=== PATIENT | female | born 1950 | race African-American/Black ===

== ENCOUNTER → 2017-03-30 | Outpatient (CLI) | payer OTHER, MEDICARE ==
[~2017-03-30] MED LIST: ACTOS15 MG PO; AMARYL2 MG PO; AMARYL4 MG PO; ARANESP100 MCG/0. SUBQ; ASPIRIN325 PO; ASPIRIN81 M2 PO; ATIVAN1 MG PO; ATIVAN2 MG PO; ATORVASTATIN CA80 MG PO; BYETTA SUBQ; CELEXA40 MG PO; CHLORTHALIDONE25 MG PO; CIPRO250 M1 PO; COREG25 MG PO; FUROSEMIDE 20 M20 M1 PO; GLUCOPHAGE1000 MG PO; LANTUS SOL100 UNIT/1 SUBQ; LISINOPRIL2.5 MG PO; LISINOPRIL20 MG PO; LISINOPRIL40 MG PO; LOPRESSOR100 MG PO; MODAFINIL200 MG PO; MULTIVITAMINS1 EAC7 PO; NEURONTIN 300300 M1 PO; NEURONTIN600 MG PO; NORCO 5-325 TA1 EACH PO; NORVASC 5 MG TAB5 MG PO; NOVOLOG100 UNIT/M SUBQ; OMEPRAZOLE-BIC1 EAC1 PO; PIOGLITAZONE15 MG PO; PROTONIX40 MG PO; SIMVASTATIN20 MG PO; SLOW REL IRON160 M1 PO; SPIRONOLACTONE25 M1 PO; SUPER B COMPLE1 EAC2 PO; TOPROL XL50 MG PO; TRAMADOL 50 MG50 MG PO; VITAMIN B-1100 M1 PO; VITAMIN D31000 UNI2 PO; VITAMIN D400 UNI1 PO; ZOFRAN ODT4 MG PO
--- NOTE | ~2017-03-30 | 2DMMODE ---
[facility] [address] [address] 2 D/M-MODE ECHOCARDIOGRAM Name: ASIM BONDS Room #: REG CL [facility]#: [id number] Admission: 03/30/17 Attend Phys: Gerardo Weiss Discharge: Date of : 48 Date of Service: 03/30/17 1351 Report #: [id number] THIS REPORT FOR: //name// APPROVED REPORT Study performed: 03/30/2017 13:03:44 EXAM: Comprehensive 2D, Doppler, and color-flow Echocardiogram Patient Location: Out-Patient Status: routine BSA: 0.78 HR: 75 bpm Rhythm: NSR Other Information Study Quality: Adequate Indications CAD, HTN, HLP 2D Dimensions RVDd: 35.23 mm LVEF(%): 56.51 (>50%) IVSd: 13.47 (7-11mm) LVOT Diam: 21.57 (18-24mm) LVDd: 43.50 mm PWd: 13.08 (7-11mm) LVDs: 30.74 (25-40mm) Aortic Root: 34.31 mm Starr's LVEF: 56.51 % Volumes Left Atrial Volume (Systole) Single Plane 4CH: 63.21 mL Single Plane 2CH: 62.45 mL Aortic Valve AoV Peak Smith.: 1.50 m/s AO Peak Gr.: 9.05 mmHg LVOT Max P.96 mmHg LVOT Max V: 1.00 m/s LULÚ Vmax: 2.42 cm2 Mitral Valve E/A Ratio: 0.6 MV Decel. Time: 158.11 ms MV E Max Smith.: 0.82 m/s [facility] [address] [address] 2 D/M-MODE ECHOCARDIOGRAM Name: ASIM BONDS Room #: REG [facility]#: [id number] Admission: 03/30/17 Attend Phys: Gerardo Weiss Discharge: Date of : 48 Date of Service: 03/30/17 1351 Report #: [id number] A Smith.: 1.41 m/s MV PHT: 45.85 ms IVRT: 76.12 ms Pulmonary Valve PV Peak Smith.: 0.99 m/s PV Peak Gr.: 3.89 mmHg Tricuspid Valve TR Peak Smith.: 2.68 m/s RAP Estimate: 5.00 mmHg TR Peak Gr.: 28.76 mmHg PA Pressure: 34.00 mmHg Left Ventricle The left ventricle is normal size. There is normal LV segmental wall motion. Mild concentric left ventricular hypertrophy. Left ventricular systolic function is normal. LVEF is 55-60%. Mild diastolic dysfunction is present (impaired relaxation pattern). Right Ventricle The right ventricle is normal size. The right ventricular systolic function is normal. Atria Left atrium is at the upper limits of normal. The right atrium size is normal. Aortic Valve The aortic valve is normal in structure. No aortic regurgitation is present. There is no aortic valvular stenosis. Mitral Valve The mitral valve is normal in structure. Trace to mild mitral regurgitation. No evidence of mitral valve stenosis. Tricuspid Valve The tricuspid valve is normal in structure. Trace tricuspid regurgitation. Estimted PAP is 30-35mmHg. Pulmonic Valve Pulmonic valve is not well visualized. Great Vessels The aortic root is normal in size. Ascending aorta is not well visualized. IVC is normal in size and collapses >50% with inspiration. [facility] [address] [place] [address] 2 D/M-MODE ECHOCARDIOGRAM Name: ASIM BONDS Room #: REG [facility]#: [id number] Admission: 03/30/17 Attend Phys: Gerardo Weiss Discharge: Date of : 48 Date of Service: 03/30/17 1351 Report #: [id number] Pericardium There is no pericardial effusion. <Conclusion> The left ventricle is normal size. LVEF is 55-60%. Left atrium is at the upper limits of normal. The aortic valve is normal in structure. The mitral valve is normal in structure. Trace to mild mitral regurgitation. The tricuspid valve is normal in structure. Trace tricuspid regurgitation. Estimted PAP is 30-35mmHg. <ELECTRONICALLY SIGNED> By: Gerardo Jordan MD 03/30/17 1351 1351 1351 Gerardo Jordan MD /INF
== END ==
LOC: CV 10:43
DX: I10 Essential (primary) hypertension (principal); I25.10 Atherosclerotic heart disease of native coronary artery without angina pectoris; E78.5 Hyperlipidemia, unspecified; M79.604 Pain in right leg; M79.89 Other specified soft tissue disorders

== ENCOUNTER 2017-08-01 15:20 | Inpatient (IN) | payer OTHER, MEDICARE ==
[~2017-08-01] VITALS: Ht 167.6 cm; Wt 105.4 kg
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
--- NOTE | ~2017-08-01 | EKG ---
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: Jozef FARAH : 1950 Requested By: Ailyn Michaels Order Number: [id number] MD: Harjeet Cheney Measurements Intervals [place] Rate: 90 P: 73 ME: 147 QRS: -18 QRSD: 146 T: 44 QT: 413 QTc: 506 Interpretive Statements Sinus rhythm Right bundle branch block Compared to ECG 06/15/2017 08:35:23 No significant changes Electronically Signed On 08-02-2017 8:45:40 DECOMMISSIONING WELL SITE MANAGER by Harjeet Cheney [email or web address] <ELECTRONICALLY SIGNED> By: Harjeet Cheney MD, [facility] 08/02/17 0845 1606 05 Harjeet Cheney MD, FACC /EPI
--- NOTE | ~2017-08-01 | HC ---
[facility] [place] [address] CONSULTATION Name: ASIM BONDS Room #: 417-I ADM IN M.R.#: [id number] Admission: 08/01/17 Attend Phys: Eduardo Gibsno MD Discharge: Date of : 48 Report #: [id number] THIS REPORT FOR: //name// CC: Eduardo Addison REASON FOR CONSULTATION: Acute kidney injury on top of chronic kidney disease. REASON FOR PRESENTATION: Weakness. HISTORY OF PRESENT ILLNESS: This is a 66-year-old with past medical history of end-stage renal disease who was in the process of being evaluated for kidney transplantation. She recently had a cardiac catheterization to clear her for the procedure. She is known to have chronic end-stage renal disease with a baseline creatinine of around 5.0. She fell about 2 weeks ago and ever since had been experiencing nausea, vomiting, mild abdominal pain. Because of the worsening of her symptoms, she decided to come to the Emergency Room for further evaluation and management. No reported urinary symptoms in the form of frequency, urgency, hesitancy. No change in the medications, no nonsteroidal anti-inflammatory medications intake. On presentation, she was found to have significantly worsening renal function with a creatinine up to 8.1. I am being consulted to manage her chronic kidney disease. MEDICATIONS: 1. Omeprazole. 2. Darbepoetin. 3. Aspirin. 4. Lisinopril. 5. Clonidine. 6. Carvedilol. 7. Chlorthalidone. PAST MEDICAL HISTORY: 1. End-stage renal disease. 2. Hypertension. 3. Diabetes mellitus. 4. Sleep apnea. 5. Status post cardiac catheterization. 6. Left knee arthroscopy. 7. Hysterectomy. 8. Cholecystectomy. 9. Bone marrow biopsy. SOCIAL HISTORY: No drug or alcohol abuse. She lives with her . ALLERGIES: SULFA. [facility] [address] [place] [address] CONSULTATION Name: ASIM BONDS Room #: 417-I [facility] IN [facility].#: [id number] Admission: 08/01/17 Attend Phys: Eduardo Gibson MD Discharge: Date of : 48 Report #: [id number] REVIEW OF SYSTEMS: GENERAL: Significant for weakness. CARDIOVASCULAR: No chest pain or palpitation. PULMONARY: No cough or hemoptysis. GASTROINTESTINAL: Significant for nausea and vomiting. GENITOURINARY: No frequency, no urgency. NEUROLOGIC: As per the history of present illness. PHYSICAL EXAMINATION: GENERAL: She is alert, oriented, in no apparent distress. VITAL SIGNS: Blood pressure is marginal at 100/44, temperature 36.6, pulse rate 82, respiratory rate 16. HEAD AND NECK: No jugular venous distention, no bruit, no thyromegaly. HEENT: Dry mucous membrane. CHEST: Clear to auscultation. CARDIOVASCULAR: Regular, with no rub. ABDOMEN: Soft, nontender with no hepatosplenomegaly. LOWER EXTREMITIES: No edema. LABORATORY DATA: Reviewed. Potassium is up to 5.6. Creatinine is 7.7, down from 8.1, however, way above her baseline. Chest x-ray with no pulmonary edema. ASSESSMENT, IMPRESSION AND PLAN: 1. Acute kidney injury due to ____. 2. End-stage renal disease, in process of being evaluated for kidney transplantation. 3. Diabetes mellitus. 4. The patient has a significantly decreased p.o. intake contributing to her acute kidney injury. 5. We will back off all the blood pressure medications. 6. Discontinue glimepiride given her blood sugar reading. 7. Continue with hydration. 8. Repeat labs in the morning and hopefully she will continue to improve back to her baseline. <ELECTRONICALLY SIGNED> By: Oanh Gresham MD 08/03/17 0939 1 1927 Oanh Gresham MD /nt
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
[~2017-08-01 15:20] MED LIST changes: +BUPROPION XL150 MG PO; +CATAPRES0.2 MG PO; +GLUCOPHAGE XR500 MG PO
[2017-08-01 15:31] VITALS: BP 121/77
[2017-08-01 16:40] LABS: ABSOLUTE NEUTROPHILS 4.5 thou/uL (1.4-8.2); EOSINOPHILS 0.5 % (0.0-3.0); HEMOGLOBIN 9.9 gm/dL (12.0-15.0); MCH 32.1 pg (26.0-34.0); MCHC 32.9 g/dL (28.0-37.0); MCV 97.7 fL (80.0-100.0); MONOCYTES 6.5 % (1.0-8.0); PLATELET COUNT 212 thou/uL (150-400); RBC 3.07 mil/uL (4.20-5.00); RDW 17.4 % (10.5-14.5)
[2017-08-01 17:03] LABS: ANION GAP 16 mmol/L (7-16); BUN 177 mg/dL (7-18); CALCIUM 10.1 mg/dL (8.5-10.1); CHLORIDE 102 mmol/L (98-107); CO2 20 mmol/L (21-32); CREATININE 8.1 mg/dL (0.6-1.0); GLUCOSE 155 mg/dL (74-106); POTASSIUM 4.7 mmol/L (3.5-5.1); SODIUM 138 mmol/L (136-145)
[2017-08-01 17:05] LABS: SGOT 14 U/L (15-37); SGPT 13 U/L (30-65); TOTAL BILIRUBIN 0.9 mg/dL (<0.1-1.0); TOTAL PROTEIN 7.7 g/dL (6.4-8.2); TROPONIN-I < 0.04 ng/mL (<0.06)
[2017-08-01 17:51] LABS: URINE BILIRUBIN NEGATIVE (Negative); URINE BLOOD NEGATIVE (Negative); URINE CLARITY CLEAR; URINE COLOR YELLOW; URINE GLUCOSE-RANDOM* NEGATIVE (Negative); URINE KETONES NEGATIVE (Negative); URINE LEUKOCYTES NEGATIVE (Negative); URINE NITRITE NEGATIVE (Negative); URINE PROTEIN (DIPSTICK) 1+ (Negative); URINE UROBILINOGEN 0.2 E.U./dl (0.2-1.0)
[2017-08-01 18:11] LABS: CASTS None Seen /LPF (None Seen); CRYSTALS None Seen /LPF (None Seen); SQUAMOUS 0-3 Few /LPF (0-3); URINE RBC None Seen /HPF (0-2); URINE WBC None Seen /HPF (0-5)
[2017-08-01 18:12] LABS: BACTERIA 1-9 Few /HPF (None Seen)
[2017-08-01 19:33] VITALS: BP 145/67
[2017-08-01 20:31] VITALS: BP 147/62
[2017-08-01 20:55] VITALS: BP 145/65
[2017-08-01 23:12] VITALS: BP 132/70
[2017-08-02 04:00] VITALS: BP 93/44
[2017-08-02 04:50] LABS: CALCIUM 8.7 mg/dL (8.5-10.1); CREATININE 7.7 mg/dL (0.6-1.0); POTASSIUM 5.6 mmol/L (3.5-5.1)
[2017-08-02 07:45] VITALS: BP 100/44
[2017-08-02 10:45] VITALS: BP 123/55
[2017-08-02 15:30] VITALS: BP 109/57
[2017-08-02 19:05] VITALS: BP 147/67
[2017-08-03 03:56] VITALS: BP 99/44
[2017-08-03 07:10] VITALS: BP 107/54
[2017-08-03 07:12] LABS: ALBUMIN 3.1 g/dL (3.4-5.0); CALCIUM 8.7 mg/dL (8.5-10.1); CREATININE 8.2 mg/dL (0.6-1.0); PHOSPHORUS 5.3 mg/dL (2.5-4.9); POTASSIUM 4.3 mmol/L (3.5-5.1)
[2017-08-03 07:20] VITALS: BP 107/54
[2017-08-03 20:00] VITALS: BP 139/60
[2017-08-04 04:30] VITALS: BP 141/65
[2017-08-04 05:12] LABS: CALCIUM 8.5 mg/dL (8.5-10.1); POTASSIUM 4.5 mmol/L (3.5-5.1)
[2017-08-04 05:14] LABS: CREATININE 7.2 mg/dL (0.6-1.0)
[2017-08-04 08:48] VITALS: BP 127/66
[2017-08-04 09:12] LABS: URINE BILIRUBIN NEGATIVE (Negative); URINE BLOOD NEGATIVE (Negative); URINE CLARITY CLEAR; URINE COLOR YELLOW; URINE GLUCOSE-RANDOM* NEGATIVE (Negative); URINE KETONES NEGATIVE (Negative); URINE LEUKOCYTES 1+ (Negative); URINE NITRITE NEGATIVE (Negative); URINE PROTEIN (DIPSTICK) NEGATIVE (Negative); URINE SPECIFIC GRAVITY 1.015 (1.005-1.035); URINE UROBILINOGEN 0.2 E.U./dl (0.2-1.0)
[2017-08-04 09:16] LABS: URINE CREATININE-RANDOM* 56.5 mg/dL; URINE PROTEIN-RANDOM* 20.8 mg/dL (<11.9)
[2017-08-04 09:27] LABS: SQUAMOUS 4-10 Moderate /LPF (0-3)
[2017-08-04 09:28] LABS: BACTERIA 1-9 Few /HPF (None Seen); CASTS None Seen /LPF (None Seen); CRYSTALS None Seen /LPF (None Seen); URINE RBC 0-2 Rare /HPF (0-2); URINE WBC 6-15 Few /HPF (0-5)
[2017-08-04 16:00] VITALS: BP 141/64
[2017-08-04 19:30] VITALS: BP 130/74
[2017-08-05 03:45] VITALS: BP 118/50
[2017-08-05 07:20] VITALS: BP 141/70
[2017-08-05 07:24] LABS: ALBUMIN 2.6 g/dL (3.4-5.0); CALCIUM 8.5 mg/dL (8.5-10.1); CREATININE 6.5 mg/dL (0.6-1.0); PHOSPHORUS 4.2 mg/dL (2.5-4.9); POTASSIUM 4.5 mmol/L (3.5-5.1)
[2017-08-05 15:15] VITALS: BP 194/96
[2017-12-03] MEDS ORDERED: WELLBUTRIN SR150 MG PO (14:05)
[2017-12-03] MEDS ORDERED: LISINOPRIL40 MG PO (14:05)
[2017-12-03] MEDS ORDERED: LIPITOR80 MG PO (14:06)
[2017-12-03] MEDS ORDERED: SENNA-DOCUSATE1 EACH PO (15:34)
[2017-12-03] MEDS ORDERED: NORCO 5-325 TA1 EACH PO (15:34)
== END 2017-08-05 20:00 | DRG 682 ==
LOC: ER 15:20 → 3W 19:07 → EROBS 19:07 → 4E 19:07 → 3W 20:28 → 4E 08-02 10:24
PROVIDERS: Hospitalist; Nurse Practitioner Acute Care; Physician Assistant
DX: N17.9 Acute kidney failure, unspecified (principal); E43 Unspecified severe protein-calorie malnutrition; I12.0 Hypertensive chronic kidney disease with stage 5 chronic kidney disease or end stage renal disease; N18.9 Chronic kidney disease, unspecified; E11.22 Type 2 diabetes mellitus with diabetic chronic kidney disease; K21.9 Gastro-esophageal reflux disease without esophagitis; M54.30 Sciatica, unspecified side; N18.6 End stage renal disease; E11.42 Type 2 diabetes mellitus with diabetic polyneuropathy; G47.33 Obstructive sleep apnea (adult) (pediatric); Z87.891 Personal history of nicotine dependence; E87.5 Hyperkalemia; D64.9 Anemia, unspecified; Z88.2 Allergy status to sulfonamides; Z90.49 Acquired absence of other specified parts of digestive tract; Z90.710 Acquired absence of both cervix and uterus; Z83.3 Family history of diabetes mellitus; Z82.49 Family history of ischemic heart disease and other diseases of the circulatory system; Z82.5 Family history of asthma and other chronic lower respiratory diseases
CPT/HCPCS: 10080; 10084

== ENCOUNTER 2017-08-05 12:13 | Inpatient (IN) | payer OTHER, MEDICARE ==
[~2017-08-05] VITALS: Ht 167.6 cm; Wt 102.5 kg
--- NOTE | ~2017-08-05 | D ---
[facility] [address] [place] [address] DISCHARGE SUMMARY Name: ASIM BONDS Room #: 503-P [facility] IN M.R.#: [id number] Admission: 08/05/17 Attend Phys: Gurpreet Crooks MD Discharge: 08/16/17 Date of : 48 Report #: [id number] THIS REPORT FOR: //name// CC: Gurpreet Addison DATE OF SERVICE: 08/16/2017 ADDENDUM The patient missed some therapy on 08/15/2017 secondary to fatigue with refusal. <ELECTRONICALLY SIGNED> By: Gurpreet Crooks MD 08/22/17 1226 1348 1404 Gurpreet Crooks MD /PMT
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
--- NOTE | ~2017-08-05 | HC ---
[facility] [place] [address] CONSULTATION Name: ASIM BONDS Room #: 503-P ADM IN M.R.#: [id number] Admission: 08/05/17 Attend Phys: Gurpreet Crooks MD Discharge: Date of : 48 Report #: [id number] THIS REPORT FOR: //name// CC: Guprreet Addison DATE OF SERVICE: 08/07/2017 ATTENDING PHYSICIAN: Gurpreet Crooks MD. LEGGER PRESS OPERATOR: Melecio Ponce, PhD. CLINICAL PRESENTATION: The patient is a 66-year-old female admitted to the rehabilitation unit at [facility] for comprehensive inpatient rehabilitation program to improve functional mobility, activities of daily living and self-care and mental status secondary to deficits from medical complexity and generalized debility. She initially was admitted to the hospital with acute renal insufficiency superimposed on chronic kidney disease. Additional problems included hyperkalemia, sciatica, diabetes mellitus, hypertension, chronic anemia and peripheral neuropathy. A complete description of her medical condition and history can be found in her medical records. Neuropsychological consultation was requested to provide assistance in the assessment of cognitive and emotional status and to provide recommendations and services. Prior to this most recent hospitalization, she was living independently in her own home with her . The patient describes herself as independent with instrumental activities of daily living. She does not have children. 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 Patient reported having obtained a master's degree. She has a history of treatment for depression and anxiety. TECHNIQUES UTILIZED: Clinical interview, review of medical records, staff consultation and behavioral observation, mini mental status exam 2 standard version, clock drawing and calibrated ideational fluency assessment (letter and category). EXAMINATION FINDINGS: The patient was alert and cooperative with the assessment. She accurately described the reasons for her hospitalization. There is no report of auditory or visual hallucinations. She does not present with aphasia. Thoughts are logical and goal oriented. There is no evidence of thought disorder. She reports her symptoms to include anxiety, depression, tiredness and fatigue, poor appetite, difficulty with memory, word finding, tiredness and fatigued. Dysarthric speech secondary to fatigue is described. to the extent of dysarthria. [facility] [address] [place] [address] CONSULTATION Name: ASIM BONDS Room #: 503-P [facility] IN M.R.#: [id number] Admission: 08/05/17 Attend Phys: Gurpreet Crooks MD Discharge: Date of : 48 Report #: [id number] Her performance on the MMSE 2 brief version is in the mild range of impairment with a raw score of 13 of 16, which is a T score 32 and percentile rank of 4. She was 3 of 3 for initial registration, 4 of 5 for orientation to time and 5 of [address] She was 1 of 3 correct for immediate recall of 3 items after a brief time delay and distraction. Performance on the MMSE 2 standard version is in the borderline range with a raw score of 23 of 30, T score of 29 and percentile rank of 2. The patient was 1 of 5 for serial sevens, 2 of 2 for naming, 1 of 1 for repetition, 3 of 3 for auditory comprehension. She could read and follow a single command, write a sentence and copy a simple geometric design. Clock drawing is within normal limits. Letter fluency was in the average range with a raw score of 27, T score of 15 and percentile rank of 50. Category fluency was in the average range with a raw score of 39, T score of 44, percentile rank of 27. Overall, verbal fluency is in the low average range with a raw score of 66, T score of 43 and percentile rank of 24. The patient is presenting with mild deficits in immediate recall, sustained concentration and attention. Subtle deficits in verbal fluency indicates variability in thought organization and general aspects of executive functioning. Her greatest impairment though is within sustained concentration. DIAGNOSTIC IMPRESSION: Mild neurocognitive disorder, unspecified, without behavior disorder. Unspecified anxiety disorder with depression. RECOMMENDATIONS: Assistance with the development of compensatory strategies to assist with immediate recall and concentration. Relaxation techniques and verbal praise and complements about her participation in therapies will help assist in management of anxiety and depression. Helping the patient identify strengths and resources that can be used to compensate for deficits will also be helpful. A neuropsychological assessment upon discharge to clarify the severity of cognitive disorder. Contributing to cognitive disorder is very likely chronic renal failure. Thank you very much for allowing me to provide the consultation on this patient. <ELECTRONICALLY SIGNED> By: Melecio Ponce, PhD 08/08/17 1841 1559 2141 Melecio Ponce, PhD /nt
--- NOTE | ~2017-08-05 | PLAN ---
[facility] [place] [address] REHAB UNIT PLAN OF CARE Name: ASIM BONDS Room #: 503-P [facility] IN M.R.#: [id number] Admission: 08/05/17 Attend Phys: Gurpreet Crooks MD Discharge: 08/16/17 Date of : 48 Report #: [id number] THIS REPORT FOR: //name// CC: Gurpreet Viveros [facility] DATE OF SERVICE: 08/08/2017 The patient is seen back today in followup. She is in no distress. Last recorded temperature 98.3, pulse 89, respirations 18, blood pressure 163/76. No focal calf swelling. She has been working in therapies with transfer standby assistance. She ambulated 5 feet standby assist with a front-wheeled walker. She has ambulated up to 150 feet handheld mod assist. In occupational therapy, lower body dressing is min assist. Her creatinine today is slowly decreased down to 5.9. ASSESSMENT: 1. Medical complexity with generalized debilitation. 2. Acute renal insufficiency superimposed on chronic kidney disease. Creatinine is down to 5.9. 3. Hyperkalemia, resolved. 4. Sciatica. 5. Diabetes mellitus with Endocrinology closely involved. 6. Hypertension. 7. Chronic anemia. 8. Peripheral neuropathy. PLAN: The overall plan of care is based on the preadmission screen, post-admission physician evaluation and information garnered from therapy assessments. 1. Estimated length of stay is probably at least 7-10 days and potentially longer. 2. Medical prognosis is reasonably good. 3. Anticipated interventions includes the interdisciplinary acute inpatient rehabilitation program with the goal of maximizing the patient's functional independence, so that she can hopefully return back to her prior living situation. We will have PT and OT involved rehab nursing assisting regarding medication management, skin care prophylaxis, bowel and bladder issues and nursing education. Case management is involved along with the car sales consultant physicians. 4. Anticipated functional outcomes would be for the patient to become modified independent with transfers, mobility and ADLs, so she can hopefully return back to her prior living situation. 5. Discharge destination is back to the home setting where she lives in a house with her . 6. Expected therapy by discipline includes PT and OT 1 and 1-1/2 hours per day [address] [address] REHAB UNIT PLAN OF CARE Name: ASIM BONDS Room #: 503-P DIS IN ..#: [id number] Admission: 08/05/17 Attend Phys: Gurpreet Crooks MD Discharge: 08/16/17 Date of : 48 Report #: [id number] each five days a week throughout the duration of the acute inpatient rehabilitation stay. The patient missed some therapy on 08/15/2017 secondary to fatigue with refusal. <ELECTRONICALLY SIGNED> By: Gurpreet Crooks MD 08/22/17 1226 0802 0827 Gurpreet Crooks MD /CESAR
[2017-08-05 20:15] VITALS: BP 171/70
[2017-08-06 03:31] LABS: ALBUMIN 2.8 g/dL (3.4-5.0); CALCIUM 8.4 mg/dL (8.5-10.1); CREATININE 6.1 mg/dL (0.6-1.0); PHOSPHORUS 3.7 mg/dL (2.5-4.9); POTASSIUM 4.8 mmol/L (3.5-5.1)
[2017-08-06 05:50] VITALS: BP 147/75
[2017-08-06 06:54] VITALS: BP 153/75
[2017-08-06 20:57] VITALS: BP 160/79
[2017-08-07 05:34] LABS: ALBUMIN 2.9 g/dL (3.4-5.0); CALCIUM 8.8 mg/dL (8.5-10.1); CREATININE 6.1 mg/dL (0.6-1.0); PHOSPHORUS 4.1 mg/dL (2.5-4.9)
[2017-08-07 08:00] VITALS: BP 163/75
[2017-08-07 19:18] VITALS: BP 163/76
[2017-08-08 06:49] LABS: ALBUMIN 2.9 g/dL (3.4-5.0); CALCIUM 8.6 mg/dL (8.5-10.1); CREATININE 5.9 mg/dL (0.6-1.0); PHOSPHORUS 3.9 mg/dL (2.5-4.9); POTASSIUM 4.6 mmol/L (3.5-5.1)
[2017-08-08 08:25] VITALS: BP 111/60
[2017-08-08 20:18] VITALS: BP 154/74
[2017-08-09 06:48] VITALS: BP 118/47
[2017-08-09 19:54] VITALS: BP 167/82
[2017-08-10 04:18] LABS: HEMOGLOBIN 6.5 gm/dL (12.0-15.0); MCH 32.2 pg (26.0-34.0)
[2017-08-10 04:20] LABS: MCHC 33.1 g/dL (28.0-37.0); MCV 97.1 fL (80.0-100.0); RBC 2.02 mil/uL (4.20-5.00); WBC 4.8 thou/uL (4.0-11.0)
[2017-08-10 04:28] LABS: HEMATOCRIT 19.6 % (37.0-47.0)
[2017-08-10 04:39] LABS: ALBUMIN 3.1 g/dL (3.4-5.0); CALCIUM 8.9 mg/dL (8.5-10.1); CREATININE 6.1 mg/dL (0.6-1.0); PHOSPHORUS 3.8 mg/dL (2.5-4.9); POTASSIUM 4.8 mmol/L (3.5-5.1)
[2017-08-10 05:04] LABS: HEMOGLOBIN 6.6 gm/dL (12.0-15.0)
[2017-08-10 05:52] LABS: % SATURATION 18 % (20-39); IRON 43 ug/dL (50-170); TIBC 241 ug/dL (250-450)
[2017-08-10 07:06] VITALS: BP 140/74
[2017-08-10 20:07] VITALS: BP 160/86
[2017-08-11 08:00] VITALS: BP 138/69
[2017-08-11 20:07] VITALS: BP 158/83
[2017-08-12 06:01] LABS: MCH 32.1 pg (26.0-34.0); MCHC 32.7 g/dL (28.0-37.0); MCV 98.2 fL (80.0-100.0); RBC 2.02 mil/uL (4.20-5.00); WBC 6.3 thou/uL (4.0-11.0)
[2017-08-12 06:10] LABS: HEMATOCRIT 19.8 % (37.0-47.0); HEMOGLOBIN 6.5 gm/dL (12.0-15.0)
[2017-08-12 06:14] LABS: ALBUMIN 3.1 g/dL (3.4-5.0); CALCIUM 9.1 mg/dL (8.5-10.1); CREATININE 6.3 mg/dL (0.6-1.0); PHOSPHORUS 4.4 mg/dL (2.5-4.9); POTASSIUM 4.3 mmol/L (3.5-5.1)
[2017-08-12 07:30] VITALS: BP 143/56
[2017-08-12 20:13] VITALS: BP 174/83
[2017-08-13 08:00] VITALS: BP 149/48
[2017-08-13 15:52] LABS: HEMATOCRIT 22.3 % (37.0-47.0); HEMOGLOBIN 7.3 gm/dL (12.0-15.0)
[2017-08-13 20:00] VITALS: BP 170/72
[2017-08-14 05:04] LABS: HEMATOCRIT 20.1 % (37.0-47.0); HEMOGLOBIN 6.6 gm/dL (12.0-15.0); MCH 32.5 pg (26.0-34.0); MCHC 32.9 g/dL (28.0-37.0); MCV 98.7 fL (80.0-100.0); RBC 2.03 mil/uL (4.20-5.00); RDW 17.1 % (10.5-14.5); WBC 7.1 thou/uL (4.0-11.0)
[2017-08-14 05:22] LABS: CREATININE 6.1 mg/dL (0.6-1.0); PHOSPHORUS 3.5 mg/dL (2.5-4.9); POTASSIUM 4.1 mmol/L (3.5-5.1)
[2017-08-14 09:46] VITALS: BP 130/76
[2017-08-14 20:10] VITALS: BP 174/82
[2017-08-15 08:00] VITALS: BP 142/63
[2017-08-15 14:41] LABS: HEMATOCRIT 23.5 % (37.0-47.0); HEMOGLOBIN 7.7 gm/dL (12.0-15.0); MCH 32.7 pg (26.0-34.0); MCHC 32.8 g/dL (28.0-37.0); MCV 99.8 fL (80.0-100.0); RBC 2.36 mil/uL (4.20-5.00); RDW 17.5 % (10.5-14.5); WBC 5.2 thou/uL (4.0-11.0)
[2017-08-15 15:04] VITALS: BP 142/63
[2017-08-15] MEDS ORDERED: TRADJENTA5 MG PO (16:06)
[2017-08-15 17:29] VITALS: BP 142/63
[2017-08-15 19:30] VITALS: BP 144/70
[2017-08-16 04:50] LABS: HEMOGLOBIN 6.8 gm/dL (12.0-15.0)
[2017-08-16 04:54] LABS: ABSOLUTE NEUTROPHILS 3.9 thou/uL (1.4-8.2); BASOPHILS 0.4 % (0.0-2.0); HEMATOCRIT 20.8 % (37.0-47.0); LYMPHOCYTES 26.1 % (24.0-44.0); MCH 32.7 pg (26.0-34.0); MCHC 32.9 g/dL (28.0-37.0); MCV 99.6 fL (80.0-100.0); MONOCYTES 9.6 % (1.0-8.0); PLATELET COUNT 215 thou/uL (150-400); POLYS 61.9 % (36.0-66.0); RBC 2.08 mil/uL (4.20-5.00); RDW 17.8 % (10.5-14.5); WBC 6.3 thou/uL (4.0-11.0)
[2017-08-16 05:08] LABS: ALBUMIN 2.9 g/dL (3.4-5.0); CALCIUM 8.4 mg/dL (8.5-10.1); CREATININE 6.3 mg/dL (0.6-1.0); PHOSPHORUS 2.7 mg/dL (2.5-4.9); POTASSIUM 4.1 mmol/L (3.5-5.1)
[2017-08-16 08:00] VITALS: BP 140/56
[2017-08-16 10:48] VITALS: BP 142/63
[2017-08-16] MEDS ORDERED: TRADJENTA5 MG PO (11:22)
[2017-12-03] MEDS ORDERED: LISINOPRIL40 MG PO (14:05)
[2017-12-03] MEDS ORDERED: WELLBUTRIN SR150 MG PO (14:05)
[2017-12-03] MEDS ORDERED: LIPITOR80 MG PO (14:06)
[2017-12-03] MEDS ORDERED: NORCO 5-325 TA1 EACH PO (15:34)
[2017-12-03] MEDS ORDERED: SENNA-DOCUSATE1 EACH PO (15:34)
== END 2017-08-16 13:00 | disposition home health service (06) | DRG 948 ==
LOC: ENTRNSPT 08-16 12:19 → EDTRNSPTSTS 08-16 12:21
PROVIDERS: Hospitalist; Internal Medicine; Internal Medicine Nephrology; Nurse Practitioner Acute Care; Physical Medicine & Rehabilitation
DX: R53.81 Other malaise (principal); N18.5 Chronic kidney disease, stage 5; I12.0 Hypertensive chronic kidney disease with stage 5 chronic kidney disease or end stage renal disease; N17.9 Acute kidney failure, unspecified; D64.9 Anemia, unspecified; E87.5 Hyperkalemia; E11.22 Type 2 diabetes mellitus with diabetic chronic kidney disease; E11.42 Type 2 diabetes mellitus with diabetic polyneuropathy; M54.30 Sciatica, unspecified side; F41.8 Other specified anxiety disorders; G31.84 Mild cognitive impairment of uncertain or unknown etiology; K21.9 Gastro-esophageal reflux disease without esophagitis; G47.33 Obstructive sleep apnea (adult) (pediatric); E78.5 Hyperlipidemia, unspecified; I25.10 Atherosclerotic heart disease of native coronary artery without angina pectoris; Z90.49 Acquired absence of other specified parts of digestive tract; Z88.2 Allergy status to sulfonamides; Z87.891 Personal history of nicotine dependence; Z83.3 Family history of diabetes mellitus; Z82.49 Family history of ischemic heart disease and other diseases of the circulatory system
CPT/HCPCS: 10112

== ENCOUNTER 2017-12-12 15:20 | Inpatient (IN) | payer OTHER, MEDICARE ==
[~2017-12-12] VITALS: Ht 172.7 cm; Wt 91.7 kg
--- NOTE | ~2017-12-12 | HC ---
[facility] [place] [address] CONSULTATION Name: VAMSHIASIM EDMOND Room #: 453-P ADM IN M.R.#: [id number] Admission: 12/12/17 Attend Phys: Momo Mcdonald MD Discharge: Date of : 48 Report #: [id number] THIS REPORT FOR: //name// CC: Felice Mcdonald REASON FOR CONSULTATION: End-stage renal disease. REASON FOR PRESENTATION: Weakness with anemia. HISTORY OF PRESENT ILLNESS: The patient is well known to me. She is known to have long-standing end-stage renal disease and had initially been started on dialysis every Tuesday, Tuesday and Tuesday. Her end-stage renal disease is attributed to diabetes mellitus and hypertension. She was recently running through major social issues. She is being evaluated for kidney transplantation. She presented, complaining of dizziness and lightheadedness. No reported fever or chills. She is known to have numerous AV malformations in the past with history of GI bleeding. She presented after she is being found to have hemoglobin of 5 in her outpatient dialysis unit and was admitted for further evaluation and management. PAST MEDICAL HISTORY: 1. End-stage renal disease. 2. Diabetes mellitus. 3. Hypertension. 4. Obstructive sleep apnea. 5. AV malformations. 6. Left knee arthroscopy. 7. Hysterectomy. 8. Benign lump removal from the left breast. 9. Cholecystectomy. 10. Bone marrow biopsy for cytopenias. PAST SURGICAL HISTORY: AV fistula. Dialysis catheter. FAMILY HISTORY: Mother was diabetic, dad was hypertensive. SOCIAL HISTORY: She is a former smoker. No drug or alcohol abuse. REVIEW OF SYSTEMS: GENERAL: No fever or chills, but significant for weakness. CARDIOVASCULAR: No chest pain, but significant for lightheadedness. PULMONARY: No cough or hemoptysis. GASTROINTESTINAL: No nausea or vomiting. GENITOURINARY: She is still making urine. No frequency, no urgency. MUSCULOSKELETAL: Occasional weakness and back pain. NEUROLOGICAL: Significant for dizziness. [facility] [address] [place] [address] CONSULTATION Name: ASIM BONDS EDMOND Room #: 453-[facility] IN ..#: [id number] Admission: 12/12/17 Attend Phys: Momo Mcdonald MD Discharge: Date of : 48 Report #: [id number] HOME MEDICATIONS: 1. Atorvastatin. 2. Carvedilol. 3. Gabapentin. 4. Citalopram. 5. Omeprazole. PHYSICAL EXAMINATION: GENERAL: Alert, oriented, no apparent distress. VITAL SIGNS: Temperature 36.8, pulse rate 77, blood pressure 128/54. HEAD AND NECK: No jugular venous distention, no bruit, no thyromegaly. CHEST: Clear to auscultation bilaterally. CARDIOVASCULAR: Regular with no rub. ABDOMEN: Soft, nontender. LOWER EXTREMITIES: No edema. LABORATORY DATA: Laboratory values reviewed. Her hemoglobin is up to 7.2. ASSESSMENT, IMPRESSION, PLAN: 1. Symptomatic anemia. 2. End-stage renal disease. 3. History of gastrointestinal bleeding. 4. Hypertension. 5. Diabetes mellitus. 6. Status post transfusion with the hemoglobin picking up appropriately. 7. Dialysis every Tuesday, Tuesday and Tuesday. 8. Replace potassium today. 9. Gastroenterology had been consulted as she is known to have numerous arteriovenous malformations in the past with repeated episodes of gastrointestinal bleeding. I will defer further plans regarding her anemia to the GI team. <ELECTRONICALLY SIGNED> By: Oanh Gresham MD 12/15/17 1027 0826 1155 Oanh Gresham MD /nt
--- NOTE | ~2017-12-12 | PATH ---
[facility] [address] [place] [address] PATHOLOGY RPT PROCEDURE Name: ASIM GALVEZ Room #: 453-P DIS IN M.R.#: [id number] Admission: 12/12/17 Date of : 48 Discharge: 12/15/17 Report #: [id number] Path Case #: [id number] [facility] Accession Number: [id number] . 01 Material submitted: . BX OF RECTAL POLYP . 01 Clinical history: . Pre-OP DX: GI bleed Post-OP DX: Rectal polyp . 02 Diagnosis: Polyp, rectal polyp, endoscopic biopsy: - Hyperplastic polyp. - Negative for dysplasia. (IUV:pit; 12/15/2017) QTP/12/15/2017 . 02 Electronically signed: . Lynn Atwood MD, Pathologist NPI- [id number] . 01 Gross description: . Received in formalin labeled "Asim Galvez, BX of rectal polyp," is a single segment of loredo soft tissue measuring 0.4 cm in maximum dimension. The specimen is submitted entirely in cassette A1. (TSD; 12/14/2017) TOB/TOB . 02 Pathologist provided ICD-10: K62.1 . 02 CPT . 284783 Performed at: [address], [place], [place] [id number] MD Olivier Lau MD Phone: [phone] Performed at: [address] [id number] MD Lynn Atwood MD Phone: [phone]
[~2017-12-12 15:20] MED LIST changes: +LIPITOR80 MG PO; +SENNA-DOCUSATE1 EACH PO; +TRADJENTA5 MG PO; +WELLBUTRIN SR150 MG PO
[2017-12-12 15:28] VITALS: BP 112/55
[2017-12-12 17:31] LABS: ABSOLUTE NEUTROPHILS 7.2 thou/uL (1.4-8.2); EOSINOPHILS 0.4 % (0.0-3.0); RBC 1.66 mil/uL (4.20-5.00); WBC 8.8 thou/uL (4.0-11.0)
[2017-12-12 17:33] LABS: BASOPHILS 0.6 % (0.0-2.0); LYMPHOCYTES 10.7 % (24.0-44.0); MCH 31.2 pg (26.0-34.0); MCHC 33.2 g/dL (28.0-37.0); MCV 94.1 fL (80.0-100.0); MONOCYTES 6.7 % (1.0-8.0); PLATELET COUNT 315 thou/uL (150-400); POLYS 81.6 % (36.0-66.0); RDW 16.6 % (10.5-14.5)
[2017-12-12 17:36] LABS: CALCIUM 8.7 mg/dL (8.5-10.1); CREATININE 3.7 mg/dL (0.6-1.0); POTASSIUM 3.8 mmol/L (3.5-5.1)
[2017-12-12 17:41] LABS: HEMATOCRIT 15.7 % (37.0-47.0); HEMOGLOBIN 5.2 gm/dL (12.0-15.0)
[2017-12-12 17:42] LABS: ALBUMIN 2.5 g/dL (3.4-5.0); DIRECT BILIRUBIN 0.2 mg/dL (<0.1-0.3); TOTAL BILIRUBIN 0.4 mg/dL (<0.1-1.0)
[2017-12-12 17:43] LABS: APTT 35.7 Seconds (24.5-32.8)
[2017-12-12 18:22] VITALS: BP 117/49
[2017-12-12 18:45] VITALS: BP 117/49
[2017-12-12 20:03] LABS: % SATURATION 57 % (20-39); IRON 111 ug/dL (50-170); TIBC 194 ug/dL (250-450)
[2017-12-12 20:13] VITALS: BP 122/52
[2017-12-12 20:33] LABS: FERRITIN 726 ng/mL (8-252)
[2017-12-12 22:02] VITALS: BP 117/55; BP 149/69
[2017-12-13 00:19] VITALS: BP 117/55
[2017-12-13 01:22] VITALS: BP 107/51; BP 117/54; BP 136/67
[2017-12-13 05:27] LABS: HEMATOCRIT 20.8 % (37.0-47.0); MCH 31.1 pg (26.0-34.0); MCHC 34.4 g/dL (28.0-37.0); MCV 90.3 fL (80.0-100.0); RBC 2.31 mil/uL (4.20-5.00); RDW 16.3 % (10.5-14.5); WBC 8.4 thou/uL (4.0-11.0)
[2017-12-13 05:28] LABS: HEMOGLOBIN 7.2 gm/dL (12.0-15.0)
[2017-12-13 05:39] LABS: ALBUMIN 2.3 g/dL (3.4-5.0); CALCIUM 8.2 mg/dL (8.5-10.1); PHOSPHORUS 2.7 mg/dL (2.5-4.9); POTASSIUM 3.4 mmol/L (3.5-5.1)
[2017-12-13 05:42] LABS: CREATININE 4.8 mg/dL (0.6-1.0)
[2017-12-13 08:08] VITALS: BP 128/54
[2017-12-13 16:42] VITALS: BP 131/64
[2017-12-13 16:50] LABS: URINE BILIRUBIN NEGATIVE (Negative); URINE BLOOD 1+ (Negative); URINE CLARITY CLEAR; URINE COLOR YELLOW; URINE GLUCOSE-RANDOM* NEGATIVE (Negative); URINE KETONES NEGATIVE (Negative); URINE NITRITE-REFLEX NEGATIVE (Negative); URINE PROTEIN (DIPSTICK) 2+ (Negative); URINE UROBILINOGEN 0.2 E.U./dl (0.2-1.0)
[2017-12-13 16:51] LABS: URINE LEUKOCYTES-REFLEX 3+ (Negative)
[2017-12-13 17:10] LABS: CRYSTALS None Seen /LPF (None Seen); SQUAMOUS 4-10 Moderate /LPF (0-3); URINE RBC 0-2 Rare /HPF (0-2)
[2017-12-13 17:11] LABS: BACTERIA-REFLEX 1-9 Few /HPF (None Seen); HYALINE CASTS 0-3 Few /LPF (None Seen)
[2017-12-13 20:18] VITALS: BP 144/54
[2017-12-14 04:30] VITALS: BP 151/59
[2017-12-14 06:07] LABS: ABSOLUTE NEUTROPHILS 5.7 thou/uL (1.4-8.2); BASOPHILS 0.4 % (0.0-2.0); EOSINOPHILS 0.9 % (0.0-3.0); HEMATOCRIT 22.6 % (37.0-47.0); HEMOGLOBIN 7.6 gm/dL (12.0-15.0); LYMPHOCYTES 15.4 % (24.0-44.0); MCH 30.9 pg (26.0-34.0); MCHC 33.7 g/dL (28.0-37.0); MCV 91.8 fL (80.0-100.0); MONOCYTES 9.8 % (1.0-8.0); PLATELET COUNT 287 thou/uL (150-400); POLYS 73.5 % (36.0-66.0); RBC 2.46 mil/uL (4.20-5.00); RDW 16.4 % (10.5-14.5); WBC 7.8 thou/uL (4.0-11.0)
[2017-12-14 06:15] LABS: CALCIUM 8.9 mg/dL (8.5-10.1); CREATININE 5.7 mg/dL (0.6-1.0); POTASSIUM 3.5 mmol/L (3.5-5.1)
[2017-12-14 17:09] VITALS: BP 136/66
[2017-12-14 19:34] VITALS: BP 154/57
[2017-12-15 04:24] VITALS: BP 110/42
[2017-12-15 08:00] VITALS: BP 121/55
[2017-12-15 17:02] VITALS: BP 121/55
== END 2017-12-15 18:30 | disposition home or self-care (01) | DRG 377 ==
LOC: ER 15:20 → 4W 18:09 → EROBS 18:09 → 4W 18:41 → ENTRNSPT 12-15 17:37 → 4W 12-15 18:30
PROVIDERS: Hospitalist; Nurse Practitioner
PROC: 30233N1 Transfusion of Nonautologous Red Blood Cells into Peripheral Vein, Percutaneous Approach (ICD-10-PCS; principal; 2017-12-12)
PROC: 5A1D70Z Performance of Urinary Filtration, Intermittent, Less than 6 Hours Per Day (ICD-10-PCS; 2017-12-13)
PROC: 0DJ08ZZ Inspection of Upper Intestinal Tract, Via Natural or Artificial Opening Endoscopic (ICD-10-PCS; 2017-12-14)
PROC: 0DBP8ZX Excision of Rectum, Via Natural or Artificial Opening Endoscopic, Diagnostic (ICD-10-PCS; 2017-12-14)
PROC: 5A1D70Z Performance of Urinary Filtration, Intermittent, Less than 6 Hours Per Day (ICD-10-PCS; 2017-12-14)
DX: K92.2 Gastrointestinal hemorrhage, unspecified (principal); N18.6 End stage renal disease; E46 Unspecified protein-calorie malnutrition; I12.0 Hypertensive chronic kidney disease with stage 5 chronic kidney disease or end stage renal disease; D64.9 Anemia, unspecified; K21.9 Gastro-esophageal reflux disease without esophagitis; E11.40 Type 2 diabetes mellitus with diabetic neuropathy, unspecified; N18.9 Chronic kidney disease, unspecified; E66.01 Morbid (severe) obesity due to excess calories; F32.9 Major depressive disorder, single episode, unspecified; F41.9 Anxiety disorder, unspecified; E78.5 Hyperlipidemia, unspecified; G47.33 Obstructive sleep apnea (adult) (pediatric); G47.00 Insomnia, unspecified; K63.5 Polyp of colon; E11.22 Type 2 diabetes mellitus with diabetic chronic kidney disease; Z90.710 Acquired absence of both cervix and uterus; Z90.49 Acquired absence of other specified parts of digestive tract; Z88.2 Allergy status to sulfonamides; Z83.3 Family history of diabetes mellitus; Z82.49 Family history of ischemic heart disease and other diseases of the circulatory system; Z87.891 Personal history of nicotine dependence; Z68.30 Body mass index [BMI] 30.0-30.9, adult; Z99.2 Dependence on renal dialysis
CPT/HCPCS: 10045; 32100; 62110; 62900; 70005

== ENCOUNTER 2018-10-27 19:03 | Emergency (ER) | payer OTHER, MEDICARE ==
[~2018-10-27] VITALS: Ht 170.2 cm; Wt 90.7 kg
[2018-10-27 19:06] VITALS: BP 150/65
[2018-10-27] MEDS ORDERED: JANUVIA25 MG PO (19:11)
[2018-10-27] MEDS ORDERED: DULOXETINE HCL20 MG PO (19:12)
[2018-10-27] MEDS ORDERED: CARAFATE 1 GM TA1 G1 PO (20:10)
[2018-10-27] MEDS ORDERED: LIDOCAINE VISC100 ML PO (20:10)
== END 2018-10-27 20:30 | disposition home or self-care (01) ==
LOC: ER 19:03
DX: K21.9 Gastro-esophageal reflux disease without esophagitis (principal); R07.0 Pain in throat; E11.40 Type 2 diabetes mellitus with diabetic neuropathy, unspecified; E78.5 Hyperlipidemia, unspecified; I12.9 Hypertensive chronic kidney disease with stage 1 through stage 4 chronic kidney disease, or unspecified chronic kidney disease; E11.22 Type 2 diabetes mellitus with diabetic chronic kidney disease; N18.9 Chronic kidney disease, unspecified; G47.30 Sleep apnea, unspecified; Z95.5 Presence of coronary angioplasty implant and graft; Z88.2 Allergy status to sulfonamides; Z90.710 Acquired absence of both cervix and uterus; Z90.49 Acquired absence of other specified parts of digestive tract; Z99.2 Dependence on renal dialysis

== ENCOUNTER 2018-11-04 13:05 | Inpatient (IN) | payer OTHER, MEDICARE ==
[~2018-11-04] VITALS: Ht 167.6 cm; Wt 93.6 kg
[~2018-11-04 13:05] MED LIST changes: +CARAFATE 1 GM TA1 G1 PO; +DULOXETINE HCL20 MG PO; +JANUVIA25 MG PO; +LIDOCAINE VISC100 ML PO
[2018-11-04 13:06] VITALS: BP 151/62
[2018-11-04] MEDS ORDERED: RENAL CAPS SOFTG1 MG PO (13:12)
[2018-11-04] MEDS ORDERED: LASIX 20 MG TAB20 MG PO (13:12)
[2018-11-04] MEDS ORDERED: ZINC50 M2 PO (13:13)
[2018-11-04 13:54] LABS: ABSOLUTE NEUTROPHILS 4.4 thou/uL (1.4-8.2); BASOPHILS 0.6 % (0.0-2.0); EOSINOPHILS 0.9 % (0.0-3.0); HEMATOCRIT 21.1 % (37.0-47.0); MCH 33.1 pg (26.0-34.0); MCHC 33.4 g/dL (28.0-37.0); MCV 99.3 fL (80.0-100.0); MONOCYTES 6.3 % (1.0-8.0); PLATELET COUNT 293 thou/uL (150-400); POLYS 69.2 % (36.0-66.0); RBC 2.12 mil/uL (4.20-5.00); WBC 6.4 thou/uL (4.0-11.0)
[2018-11-04 14:07] LABS: CREATININE 2.6 mg/dL (0.6-1.0); POTASSIUM 3.6 mmol/L (3.5-5.1)
[2018-11-04 15:05] VITALS: BP 129/75
[2018-11-04 15:55] LABS: ALBUMIN 3.5 g/dL (3.4-5.0); TOTAL PROTEIN 7.3 g/dL (6.4-8.2); TROPONIN-I <0.06 ng/mL (<0.06)
[2018-11-04 16:19] LABS: TSH 1.776 uIU/mL (0.358-3.740)
[2018-11-04 17:24] VITALS: BP 121/51
[2018-11-04 18:21] VITALS: BP 109/33
[2018-11-04 19:09] VITALS: BP 128/52
--- NOTE | 2018-11-04 19:26 | NUR ---
Pt arrived to floor from emergency room at 1800.Admission hx completed.Bp was 109/33. Dr Reyes notified.Order noted.Pt was tearful related to medical situation.Emotional support given.She wanted her pcp notify about her admission. Report off to noc rn.
[2018-11-04 21:03] VITALS: BP 122/49; BP 129/58; BP 138/66
--- NOTE | 2018-11-05 02:46 | NUR ---
ASSUMED PT CARE 0. PT ALERT AND ORIENTED. ADMISSION ASSESSMENT COMPLETE. VSS. 1 UNIT OF BLOOD GIVEN, SEE CHARTING. IV DRESSING C/D/I, NO SIGNS OF INFILTRATION. PT REPORTS PAIN IN L ARM, SEE EMAR. SUMI FISTULA-BRUIT AND THRILL PRESENT. PT DENIES N/V. PT CALLL IGHT WITHIN REACH, WILL CONTINUE POC UNTIL EOS.
[2018-11-05 04:07] LABS: HEMATOCRIT 20.6 % (37.0-47.0); MCH 32.9 pg (26.0-34.0); MCHC 33.9 g/dL (28.0-37.0); MCV 97.1 fL (80.0-100.0); RBC 2.13 mil/uL (4.20-5.00); RDW 20.1 % (10.5-14.5); WBC 5.5 thou/uL (4.0-11.0)
[2018-11-05 04:20] LABS: CALCIUM 9.2 mg/dL (8.5-10.1); MAGNESIUM 1.9 mg/dL (1.8-2.4); POTASSIUM 4.1 mmol/L (3.5-5.1)
[2018-11-05 07:05] VITALS: BP 123/44
[2018-11-05 09:37] LABS: % SATURATION 25 % (20-39); IRON 57 ug/dL (50-170); TIBC 229 ug/dL (250-450)
--- NOTE | 2018-11-05 10:32 | NUR ---
TOWARDS POC PT A/O X4, VSS, AFEBRILE, DENIES PAIN. NO NV. NO ACTIVE GI BLEEDING NOTED. NO CONCERNS VOICED. WILL CONTINUE TO MONITOR.
--- NOTE | 2018-11-05 10:32 | EKG ---
[address] [address] ELECTROCARDIOGRAM REPORT Name: ASIM BONDS Room #: 418-P ADM IN M.R.#: [id number] ������������������ Admission: 11/04/18 ������������������ Attend Phys: Fernandez Reyes MD Discharge: ������������������ Date of : 48 Report #: [id number] ����������������������������������������������������������������� [id number] THIS REPORT FOR: //name// [facility] ED Test Date: 2018-11-04 Test Time: 13:46:17 Pat Name: ASIM BONDS Department: Room: [facility] Gender: F Bobbin Sorter: shaji : 1950 Requested By: Yash Herron Order Number: [id number] MD: Mohinder Herring Measurements Intervals Boling Rate: 90 P: 44 MO: 174 QRS: 18 QRSD: 140 T: 11 QT: 423 QTc: 518 Interpretive Statements Sinus rhythm Right bundle branch block Compared to ECG 08/01/2017 16:06:10 No significant changes Electronically Signed On 11-05-2018 10:31:41 CDT by Mohinder Herring [email or web address] ��������������������������������������������� <ELECTRONICALLY SIGNED> ���������������������������������������� By: Mohinder Herring MD ��������������������������������������������� 11/05/18 1031 1346 1346 MD DIGNA Galvin
[2018-11-05 11:31] LABS: HEMOGLOBIN 7.3 gm/dL (12.0-15.0); MCH 32.5 pg (26.0-34.0); MCHC 33.2 g/dL (28.0-37.0); RBC 2.25 mil/uL (4.20-5.00); RDW 20.5 % (10.5-14.5); WBC 5.4 thou/uL (4.0-11.0)
[2018-11-05 13:33] VITALS: BP 123/51; BP 123/55; BP 125/60
[2018-11-05 19:34] VITALS: BP 145/58
--- NOTE | 2018-11-06 02:58 | NUR ---
ASSUMED CARE AT 1900, ASSESSMENT COMPLETED. PT DENIES PAIN, NAUSEA, OR SOB. REPORTS POOR APPETITE, STATING SHE ONLY ATE A FEW BITES OF THE FOOD HER FAMILY BROUGHT IN; SHE DID ASK TO HAVE IT REHEATED AROUND 2230 AND ATE A LITTLE MORE. DENIES FEELING DIZZY OR LIGHTHEADED, REPORTS FEELING BETTER SINCE SECOND UNIT OF BLOOD. NPO AT MIDNIGHT FOR NM GASTRIC EMPYTING STUDY IN THE MORNING. CALLS APPROPRIATELY FOR NEEDS. NO OTHER CONCERNS, WILL CONTINUE TO MONITOR.
[2018-11-06 03:14] VITALS: BP 112/66
[2018-11-06 04:00] VITALS: BP 131/60
[2018-11-06 05:28] LABS: HEMATOCRIT 23.7 % (37.0-47.0); HEMOGLOBIN 7.9 gm/dL (12.0-15.0); MCH 32.2 pg (26.0-34.0); MCHC 33.6 g/dL (28.0-37.0); RBC 2.47 mil/uL (4.20-5.00); RDW 20.2 % (10.5-14.5); WBC 5.9 thou/uL (4.0-11.0)
[2018-11-06 05:38] LABS: ALBUMIN 2.8 g/dL (3.4-5.0); CALCIUM 9.5 mg/dL (8.5-10.1); PHOSPHORUS 2.5 mg/dL (2.5-4.9); POTASSIUM 4.3 mmol/L (3.5-5.1)
[2018-11-06 05:41] LABS: CREATININE 6.1 mg/dL (0.6-1.0)
[2018-11-06 08:00] VITALS: BP 150/58
--- NOTE | 2018-11-06 10:16 | NUR ---
ASSUMED CARE AT 0700, SHIFT ASSESSMENT DONE, NPO SINCE LAST NIGHT. DENIES ANY NAUSEA, VOMITING, PAIN. WENT FOR THE GASTRIC EMPTYING STUDY TO RULE OUT GASTROPARESIS. SCHEDULED FOR DIALYSIS TOMORROW. WILL CONTINUE TO ASSESS AND ASSIST WITH ADLs NEEDED.
--- NOTE | 2018-11-06 14:23 | NUR ---
ASSESSMENT-PT LIVES IN AN APT ALONE. SHE DRIVES HERSELF TO AND FROM [facility], SAT 11:15. PT WALKS ON HER OWN AND DOES HER OWN ADLS. PT HAS A CANE AND WALKER AT HOME IF NEEDED. SHE HAS HAD [facility] IN THE PAST FOR SERVICES. PT LOST HER Aug AND IS WORKING THRU GRIEVING PROCESS. SHE IS SEEING A PSYCHIATRIST AND THERAPIST FOR HER GRIEF. PT DENIES ANY DC NEEDS AT THIS TIME. FOLLOWING TO ASSIST WITH DC PLANNING.
[2018-11-06] MEDS ORDERED: CALCIUM ACETAT667 MG PO (17:04)
[2018-11-06] MEDS ORDERED: REGLAN 5 MG TAB5 MG PO (17:04)
[2018-11-06 17:54] VITALS: BP 144/64
--- NOTE | 2018-11-08 09:07 | HC ---
[facility] [place] [address] CONSULTATION Name: VAMSHIASIM Room #: 418-P [facility] IN M.R.#: [id number] Admission: 11/04/18 ������������������ Attend Phys: Fernandez Reyes MD Discharge: 11/06/18 ������������������ Date of : 48 Report #: [id number] THIS REPORT FOR: //name// CC: Fernandez Avilakermit HISTORY OF PRESENT ILLNESS: The patient is a very pleasant 67-year-old -Latvian female who I have been asked to see for further evaluation of chronic anemia. She gives an eloquent history of prior GI workup, which initiated in 2012. She had upper endoscopy, pill endoscopy and colonoscopy at that point determining no lesions. Shortly thereafter, she was evaluated at [facility] for recurrent anemia and was found to have small bowel lesions, AVMs. These were treated with double balloon endoscopy, and she had a repeat double balloon endoscopy for persistent recurrent iron deficiency anemia in July of this year where 8-10 AVMs were treated. She denies any hematochezia or melena currently. She has complications of renal dialysis and chronic renal failure contributing to her anemia. I have been asked to see her for further evaluation of her anemia with hemoglobin now 7.1 after 1 unit of transfusion. Apparently, it was 5.8 at dialysis. PAST MEDICAL HISTORY: Her medical history is well documented in the chart, but includes acute renal failure, AVMs of the small bowel, chronic renal insufficiency, dehydration, diabetes, dialysis, generalized weakness, GERD, heme positive stool, low hemoglobin, nausea, obstructive sleep apnea, renal failure, sciatica. Diabetes, longstanding. ALLERGIES: SHE IS ALLERGIC TO SULFA. FAMILY HISTORY AND SOCIAL HISTORY: Noncontributory. REVIEW OF SYSTEMS: She does report early satiety and some nausea with poor appetite. She denies head, eyes, ears, nose or throat complaints. Denies chest pain, chest palpitation, chest pressure, cough, shortness of breath, wheezing, genitourinary, musculoskeletal or neuropsychiatric complaints beyond that mentioned above. OBJECTIVE: VITAL SIGNS: She is afebrile. Vital signs stable. HEENT: Nonicteric. NECK: No JVD, thyromegaly or bruits. CARDIOVASCULAR: Regular, tachycardic. LUNGS: Clear. ABDOMEN: Soft and nondistended. Normoactive bowel sounds. No hepatosplenomegaly. No stigmata of chronic liver disease. No abnormal masses or bruits. EXTREMITIES: Deferred. [address] [address] CONSULTATION Name: ASIM BONDS Room #: 418-P [facility] IN [facility].#: [id number] Admission: 11/04/18 ������������������ Attend Phys: Fernandez Reyes MD Discharge: 11/06/18 ������������������ Date of : 48 Report #: [id number] NEUROLOGIC: Deferred. RECTAL: Deferred. PERTINENT LABORATORY DATA: Presenting hemoglobin 7.0, MCV 97.1, platelet count 241. Chemistry: BUN 20, on admission 13. ASSESSMENT AND PLAN: In summary, the patient has chronic anemia, which is multifactorial. She has had small bowel AVMs as detailed above and had received treatment for this x 2 with balloon enteroscopy. She is unable to determine whether or not she is having melena. She has had some fatigue associated with her anemia. She has received Procrit as well for her anemia from a renal standpoint. She has had iron infusions in the past and p.o. iron in the past as well. At this point, I suggest transfusing her hemoglobin to a safe level and monitoring it over time. I would start oral iron sulfate daily as she tolerates it well and then supplement her iron overtime intravenously by checking her iron studies every 4 weeks or so. In addition, if her blood loss became significantly greater than her ability to replace iron, I will consider repeating her double balloon enteroscopy. As it pertains to her early satiety and nausea, we have ordered a gastric emptying time for tomorrow. Again, I appreciate the opportunity to participate in her care. We will follow concurrently. ��������������������������������������������� <ELECTRONICALLY SIGNED> ���������������������������������������� By: Wilfrido Woodson MD ��������������������������������������������� 11/08/18 0907 1251 0750 Jeanmarie Garduno MD /nt
--- NOTE | 2018-11-08 11:20 | HC ---
[facility] [place] [address] CONSULTATION Name: ASIM BONDS Room #: 418-P [facility] IN M.R.#: [id number] Admission: 11/04/18 ������������������ Attend Phys: Fernandez Reyes MD Discharge: 11/06/18 ������������������ Date of : 48 Report #: [id number] THIS REPORT FOR: //name// CC: [facility] REASON FOR CONSULTATION: End-stage renal disease. HISTORY OF PRESENT ILLNESS: The patient is well known to our service, who has been seen intermittently by our group for some years and now dialyzes at [facility] in [place]. She has developed recurrent symptomatic anemia, with hemoglobin of 5, and has a history of bleeding, AV malformations. She had these cauterized 3 months ago at [facility] by her water resources technical officer. She became progressively symptomatic with difficulty focusing, dizziness and unsteadiness on her feet, had the above hemoglobin came to the hospital, got a unit of blood and was admitted. PAST MEDICAL HISTORY: End-stage renal disease, longstanding diabetes and hypertension, now on dialysis for the last year or so. She has done reasonably well except for the anemia and the documented arteriovenous malformations. PAST SURGICAL HISTORY: Includes cholecystectomy. She also has obstructive sleep apnea. HOME MEDICATIONS: Include lisinopril 40 mg daily, omeprazole 40 mg daily, Celexa 40 mg daily, gabapentin 300 mg at bedtime, Januvia 25 mg daily, fluoxetine 20 mg daily, furosemide 20 mg daily, Nephrocaps 1 daily, atorvastatin 80 mg daily, carvedilol 25 mg b.i.d., Ativan 2 mg daily, Calferon 2 with meals t.i.d. REVIEW OF SYSTEMS: GENERAL: She has been feeling reasonably well. EYES: Vision is okay. ENT: Hearing okay, swallows okay. No mouth ulcers. ENDOCRINE: Positive for the diabetes. RESPIRATORY: No shortness of air, pleuritic pain, cough, or hemoptysis. CARDIAC: No chest pain, angina or leg swelling. GASTROINTESTINAL: She has not seen any blood in the stool. There is no nausea, vomiting or diarrhea. GENITOURINARY: Not making much urine, no dysuria. NEUROLOGIC: No seizure, syncope or stroke. Does have some peripheral neuropathy symptoms. MUSCULOSKELETAL: No arthritis. [address] [place] [address] CONSULTATION Name: ASIM BONDS Room #: 418-P DIS IN M.R.#: [id number] Admission: 11/04/18 ������������������ Attend Phys: Fernandez Reyes MD Discharge: 11/06/18 ������������������ Date of : 48 Report #: [id number] PHYSICAL EXAMINATION: VITAL SIGNS: Reasonably well-appearing patient, in no acute distress. SKIN: No lesions noted. SKELETAL: No joint deformities. HEENT: Extraocular movements are full. Vision is intact. Hearing is intact. Mucous membranes moist. Tongue, buccal mucosa benign. NECK: Supple, no JVD. CHEST: Clear to auscultation. HEART: Regular. ABDOMEN: Soft and nontender. No bruits, masses or organomegaly. EXTREMITIES: Show no peripheral edema. Pulses slightly diminished. LABORATORY DATA: Hemoglobin is 7. Sodium 138, potassium 4.1, chloride 102, bicarbonate 30, BUN 24, creatinine 4, magnesium 1.9. ASSESSMENT AND PLAN: 1. Symptomatic anemia. She has known bleeding arteriovenous malformation. We will check her iron studies for completeness. We will continue her on Procrit injections and consider initiation of estrogens for her bleeding AVMs, which can be an effective treatment in dialysis patients. 2. End-stage renal disease, on dialysis, dialyze tomorrow. No heparin. 3. Diabetes mellitus. 4. Hypertension. 5. Obstructive sleep apnea. ��������������������������������������������� <ELECTRONICALLY SIGNED> ���������������������������������������� By: Luis Carlos Haskins MD ��������������������������������������������� 11/08/18 1120 0917 2343 Luis Carlos Haskins MD /nt
== END 2018-11-06 20:09 | disposition home or self-care (01) | DRG 377 ==
LOC: ER 13:05 → 4E 14:37 → EROBS 14:37 → 4E 17:31
PROVIDERS: Emergency Medicine; Internal Medicine Nephrology; ADMIT Internal Medicine
PROC: 30233N1 Transfusion of Nonautologous Red Blood Cells into Peripheral Vein, Percutaneous Approach (ICD-10-PCS; principal; 2018-11-04)
PROC: 5A1D70Z Performance of Urinary Filtration, Intermittent, Less than 6 Hours Per Day (ICD-10-PCS; 2018-11-05)
DX: K55.21 Angiodysplasia of colon with hemorrhage (principal); N18.6 End stage renal disease; D62 Acute posthemorrhagic anemia; I12.0 Hypertensive chronic kidney disease with stage 5 chronic kidney disease or end stage renal disease; E11.43 Type 2 diabetes mellitus with diabetic autonomic (poly)neuropathy; K21.9 Gastro-esophageal reflux disease without esophagitis; F32.9 Major depressive disorder, single episode, unspecified; K31.84 Gastroparesis; E78.5 Hyperlipidemia, unspecified; D63.8 Anemia in other chronic diseases classified elsewhere; E11.22 Type 2 diabetes mellitus with diabetic chronic kidney disease; G47.33 Obstructive sleep apnea (adult) (pediatric); E11.42 Type 2 diabetes mellitus with diabetic polyneuropathy; Z90.49 Acquired absence of other specified parts of digestive tract; Z90.710 Acquired absence of both cervix and uterus; Z79.899 Other long term (current) drug therapy; Z88.2 Allergy status to sulfonamides; Z87.891 Personal history of nicotine dependence
CPT/HCPCS: 10084; 10183

== ENCOUNTER 2019-01-25 09:39 | Emergency (ER) | payer OTHER, MEDICARE ==
[~2019-01-25] VITALS: Ht 175.3 cm; Wt 75.4 kg
[~2019-01-25 09:39] MED LIST changes: +CALCIUM ACETAT667 MG PO; +LASIX 20 MG TAB20 MG PO; +REGLAN 5 MG TAB5 MG PO; +RENAL CAPS SOFTG1 MG PO; +ZINC50 M2 PO
[2019-01-25 10:49] LABS: ABSOLUTE NEUTROPHILS 5.3 thou/uL (1.4-8.2); BASOPHILS 0.8 % (0.0-2.0); EOSINOPHILS 0.6 % (0.0-3.0); HEMATOCRIT 22.6 % (37.0-47.0); HEMOGLOBIN 7.3 gm/dL (12.0-15.0); LYMPHOCYTES 15.2 % (24.0-44.0); MCH 32.8 pg (26.0-34.0); MCHC 32.4 g/dL (28.0-37.0); MCV 101.3 fL (80.0-100.0); MONOCYTES 6.6 % (1.0-8.0); PLATELET COUNT 322 thou/uL (150-400); POLYS 76.8 % (36.0-66.0); RBC 2.23 mil/uL (4.20-5.00); RDW 17.1 % (10.5-14.5); WBC 6.9 thou/uL (4.0-11.0)
[2019-01-25 10:56] LABS: URINE BLOOD NEGATIVE (Negative); URINE CLARITY CLEAR; URINE COLOR YELLOW; URINE GLUCOSE-RANDOM* NEGATIVE (Negative); URINE KETONES TRACE (Negative); URINE LEUKOCYTES-REFLEX NEGATIVE (Negative); URINE NITRITE-REFLEX NEGATIVE (Negative); URINE PROTEIN (DIPSTICK) 2+ (Negative); URINE SPECIFIC GRAVITY 1.015 (1.005-1.035); URINE UROBILINOGEN 0.2 E.U./dl (0.2-1.0)
[2019-01-25 10:58] LABS: ICTOTEST (BILI CONFIRMATORY) Negative (Negative); URINE BILIRUBIN NEGATIVE (Negative)
[2019-01-25 11:23] LABS: SQUAMOUS 0-3 Few /LPF (0-3)
[2019-01-25 11:24] LABS: CRYSTALS None Seen /LPF (None Seen); HYALINE CASTS 0-3 Few /LPF (None Seen); URINE RBC None Seen /HPF (0-2); URINE WBC-REFLEX None Seen /HPF (0-5)
[2019-01-25 11:26] LABS: BACTERIA-REFLEX None Seen /HPF (None Seen)
[2019-01-25 12:06] LABS: ANION GAP 13 mmol/L (7-16); BUN 34 mg/dL (7-18); CALCIUM 10.3 mg/dL (8.5-10.1); CHLORIDE 100 mmol/L (98-107); CO2 28 mmol/L (21-32); CREATININE 8.9 mg/dL (0.6-1.0); GLUCOSE 136 mg/dL (74-106); POTASSIUM 3.7 mmol/L (3.5-5.1); SODIUM 141 mmol/L (136-145)
[2019-01-25 12:16] LABS: ALBUMIN 3.5 g/dL (3.4-5.0); MAGNESIUM 2.5 mg/dL (1.8-2.4); SGOT 9 U/L (15-37); SGPT 9 U/L (30-65); TOTAL BILIRUBIN 0.9 mg/dL (<0.1-1.0); TROPONIN-I <0.06 ng/mL (<0.06)
[2019-01-25] MEDS ORDERED: ONDANSETRON ODT8 MG PO (13:19)
[2019-01-25 13:27] VITALS: BP 153/57
--- NOTE | 2019-01-26 07:21 | EKG ---
[place] [address] 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: : 1950 Requested By: Salbador Smith Order Number: [id number] MD: Harjeet Cheney Measurements Intervals [place] Rate: 85 P: 57 VT: 173 QRS: 40 QRSD: 141 T: 51 QT: 401 QTc: 477 Interpretive Statements Sinus rhythm Right bundle branch block Compared to ECG 11/04/2018 13:46:17 No significant changes Electronically Signed On 01-26-2019 7:21:13 CDT by Harjeet Cheney [email or web address] ��������������������������������������������� <ELECTRONICALLY SIGNED> ���������������������������������������� By: Harjeet Cheney MD, [facility] ��������������������������������������������� 01/26/19 0721 [id number] 09 Harjeet Cheney MD, FACC /EPI
== END 2019-01-25 13:58 | disposition home or self-care (01) ==
LOC: ER 09:39
PROVIDERS: Emergency Medicine
DX: D64.9 Anemia, unspecified (principal); I12.0 Hypertensive chronic kidney disease with stage 5 chronic kidney disease or end stage renal disease; E11.22 Type 2 diabetes mellitus with diabetic chronic kidney disease; N18.6 End stage renal disease; K21.9 Gastro-esophageal reflux disease without esophagitis; E78.5 Hyperlipidemia, unspecified; G47.30 Sleep apnea, unspecified; Z90.710 Acquired absence of both cervix and uterus; Z99.2 Dependence on renal dialysis; Z88.2 Allergy status to sulfonamides

== ENCOUNTER → 2019-10-31 | Outpatient (CLI) | payer OTHER, MEDICARE ==
[~2019-10-31] MED LIST changes: +ONDANSETRON ODT8 MG PO
== END ==
LOC: SJCVC 14:11
DX: Z01.818 Encounter for other preprocedural examination (principal); E11.9 Type 2 diabetes mellitus without complications; I25.10 Atherosclerotic heart disease of native coronary artery without angina pectoris; R06.09 Other forms of dyspnea; I10 Essential (primary) hypertension

== ENCOUNTER → 2019-11-05 | Outpatient (CLI) | payer OTHER, MEDICARE | LOC: SJCVCIMAG 09:48 | DX: I08.1 Rheumatic disorders of both mitral and tricuspid valves (principal); I45.10 Unspecified right bundle-branch block; I11.9 Hypertensive heart disease without heart failure; I25.10 Atherosclerotic heart disease of native coronary artery without angina pectoris; R94.31 Abnormal electrocardiogram [ECG] [EKG]; E78.5 Hyperlipidemia, unspecified; E11.9 Type 2 diabetes mellitus without complications; Z88.2 Allergy status to sulfonamides ==

== ENCOUNTER → 2020-11-14 | Outpatient (CLI) | payer OTHER, MEDICARE | LOC: SJCVCIMAG 07:52 | PROVIDERS: ATTEND Internal Medicine | DX: I45.10 Unspecified right bundle-branch block (principal); I49.3 Ventricular premature depolarization; R06.00 Dyspnea, unspecified; R10.9 Unspecified abdominal pain; R11.0 Nausea; I25.10 Atherosclerotic heart disease of native coronary artery without angina pectoris; I10 Essential (primary) hypertension; E78.5 Hyperlipidemia, unspecified; G47.33 Obstructive sleep apnea (adult) (pediatric); M19.90 Unspecified osteoarthritis, unspecified site; E11.51 Type 2 diabetes mellitus with diabetic peripheral angiopathy without gangrene; I73.9 Peripheral vascular disease, unspecified; Z98.890 Other specified postprocedural states; Z79.899 Other long term (current) drug therapy; Z82.49 Family history of ischemic heart disease and other diseases of the circulatory system ==